=== PATIENT | male | born 1990 | race Caucasian/White ===

== ENCOUNTER 2019-03-05 21:56 | Emergency (ER) | payer MEDICAID, OTHER ==
[2019-03-06] MEDS: IBUPROFEN 800 MG TAB PO (00:05)
[2019-03-06] MEDS: MECLIZINE 12.5 MG TAB PO (00:05)
== END 2019-03-06 00:35 | disposition home or self-care (01) ==
LOC: FTE 21:56
DX: J32.9 Chronic sinusitis, unspecified (principal)
CPT/HCPCS: 99282; Z7502